=== PATIENT | male | born 1980 | race Caucasian/White ===

== ENCOUNTER 2017-07-04 10:49 | Emergency (ER) | payer SELFPAY ==
[2017-07-04] MEDS ORDERED: Morphine 10 MG/ML VIAL ONE (11:28)
[2017-07-04 11:49] LABS: Bilirubin Negative (Negative); Blood, Urine Negative (Negative); Clarity CLEAR (Clear); Glucose, Urine (Dipstick) Negative (Negative); Leukocyte Negative (Negative); Nitrite Negative (Negative); Protein, Urine (Dipstick) Negative (Neg-Trace); Specific Gravity, Urine 1.018 (1.002-1.036)
--- NOTE | 2017-07-04 12:22 | ULT ---
BILATERAL TESTICULAR/SCROTAL ULTRASOUND: History: Bilateral testicular pain. Technique: Multiplanar grayscale and color doppler images were obtained in a testicular/scrotal ultra sound. Spectral analysis of the doppler waveforms were performed. FINDINGS: Testicles were normal in echogenicity without focal lesion and demonstrate normal symmetric internal flow. No hydrocele is seen. The epididymi are symmetric in appearance without focal abnormality and d emonstrate symmetric internal flow. IMPRESSION: Unremarkable testicular/scrotal ultrasound. POS: [facility]
[2017-07-04 12:55] LABS: #Eosinphils 0.2 thou/uL (0.0-0.7); #Lymphocytes 1.1 thou/uL (1.20-3.40); #Monocytes 0.8 thou/uL (0.11-0.59); #Neutrophils 7.3 thou/uL (1.40-6.50); %Basophils 0.4 % (0.0-1.0); %Eosinophils 2.3 % (0.0-10.0); %Lymphocytes 11.4 % (21.0-51.0); %Neutrophils 77.9 % (42.0-75.0); Hemoglobin 15.2 g/dL (14.0-18.0); Mean Corpuscular Hemoglobin 30.9 pg (27.0-31.0); Mean Corpuscular Volume 93.5 fl (80.0-94.0); Mean Platelet Volume 7.9 fL (7.4-10.4); Platelet Count 259 thou/uL (130-400); RBC Distribution Width 12.5 % (11.5-14.5); Red Blood Cell (RBC) Count 4.92 mill/uL (4.70-6.10); White Blood Cell (WBC) Count 9.4 thou/uL (4.8-10.8)
[2017-07-04 13:17] LABS: ALT (SGPT) 13 U/L (8-55); AST (SGOT) 19 U/L (5-34); Albumin 4.2 g/dL (3.5-5.0); Alkaline Phosphatase 69 U/L (40-150); Anion Gap 12 mmol/L (10-20); BUN (Urea Nitrogen) 8 mg/dL (8.9-20.6); Bilirubin, Total 0.3 mg/dL (0.2-1.2); CRP (Inflammatory) 0.71 mg/dL (= or < 0.5); Calc. Creatinine Clearance 0 mL/min (70-130); Calcium 9.5 mg/dL (7.8-10.44); Carbon Dioxide 24 mmol/L (22-29); Chloride 106 mmol/L (98-107); Estimated GFR-MDRD 84; Globulin 3.1 g/dL (2.4-3.5); Glucose 89 mg/dL (70-105); Protein, Total 7.3 g/dL (6.0-8.3); Sodium 138 mmol/L (136-145)
--- NOTE | 2017-07-04 13:18 | CT ---
CT OF THE ABDOMEN AND PELVIS WITH CONTRAST: COMPARISON: None. HISTORY: Right testicular pain and swelling that began yesterday. TECHNIQUE: Multiple contiguous axial images were obtained in a CT of the abdomen and pelvis with contrast. Jhonny nal reformats were performed. FINDINGS: There is a subcentimeter hypodensity in the right lobe of the liver which is too small to characteriz e but likely represents a cyst. The gallbladder, kidneys, adrenal glands, spleen, and pancreas are u nremarkable. No free air, free fluid, or stranding changes are seen in the abdomen or pelvis. The large and small bowel are unremarkable. The appendix is not definite seen. Both testicles show no obvious abnormality. There is no scrotal wall thickening. No air is seen in the perioneal region. The visualized inferior thorax and osseous structures are unremarkable. IMPRESSION: 1. No evidence of acute intraabdominal/pelvic abnormality. 2. No significant scrotal abnormality. POS: [facility]
[2017-07-04] MEDS ORDERED: Azithromycin 250 MG TAB ONE (13:31)
[2017-07-04] MEDS ORDERED: HYDROcodone/Acetaminophen 5/325 mg Tablet ONE (13:45)
[2017-07-04] MEDS ORDERED: cefTRIAXone\\ROCEPHIN 250 MG VIAL ONE (13:55)
[2017-07-04] MEDS ORDERED: ISOVUE-370 76%-LOCM 1 ML ONE (15:51)
[2017-07-06 00:57] LABS: Chlamydia by PCR Not Detected (NotDetected); GC by PCR Not Detected (NotDetected)
== END 2017-07-04 14:24 | disposition home or self-care (01) ==
LOC: EDBD 10:49 → ERS 10:49
DX: N50.811 Right testicular pain (principal)
CPT/HCPCS: 36415; 74177; 76870; 80053; 81003; 83605; 85025; 85652; 86140; 87491; 87591; 93976; 96372; 96374; J0696; J2270

== ENCOUNTER 2021-01-30 03:27 | Emergency (ER) | payer OTHER ==
[2021-01-30] MEDS ORDERED: Ondansetron PF 4 MG/2 ML Vial ONE (03:46)
[2021-01-30] MEDS ORDERED: Pantoprazole 40 MG VIAL ONE (03:46)
[2021-01-30] MEDS ORDERED: Famotidine/PF 20 mg/2ml Vial ONE (03:51)
[2021-01-30 04:15] LABS: #Basophils 0.1 thou/uL (0.0-0.2); #Lymphocytes 1.1 thou/uL (1.20-3.40); #Monocytes 0.8 thou/uL (0.11-0.59); #Neutrophils 16.4 thou/uL (1.40-6.50); %Basophils 0.3 % (0.0-1.0); %Eosinophils 0.1 % (0.0-10.0); %Lymphocytes 5.9 % (21.0-51.0); %Monocytes 4.3 % (0.0-10.0); %Neutrophils 89.3 % (42.0-75.0); Hemoglobin 15.8 g/dL (14.0-18.0); Mean Corpuscular HGB CONC 33.4 g/dL (32.0-36.0); Mean Corpuscular Hemoglobin 30.3 pg (27.0-31.0); Mean Corpuscular Volume 90.8 fL (78.0-98.0); Mean Platelet Volume 7.7 fL (7.4-10.4); Platelet Count 299 thou/uL (130-400); RBC Distribution Width 11.5 % (11.5-14.5); Red Blood Cell (RBC) Count 5.23 mill/uL (4.70-6.10); White Blood Cell (WBC) Count 18.3 thou/uL (4.8-10.8)
[2021-01-30 04:35] LABS: ALT (SGPT) 19 U/L (8-55); AST (SGOT) 18 U/L (5-34); Albumin 4.7 g/dL (3.5-5.0); Alkaline Phosphatase 87 U/L (40-110); Anion Gap 17 mmol/L (10-20); BUN (Urea Nitrogen) 11 mg/dL (8.9-20.6); Bilirubin, Total 0.6 mg/dL (0.2-1.2); Calc. Creatinine Clearance 0 mL/min (70-130); Calcium 10.2 mg/dL (7.8-10.44); Carbon Dioxide 24 mmol/L (22-29); Chloride 102 mmol/L (98-107); Globulin 3.5 g/dL (2.4-3.5); Glucose 127 mg/dL (70-105); Lipase 85 U/L (8-78); Potassium 3.5 mmol/L (3.5-5.1); Protein, Total 8.2 g/dL (6.0-8.3); Sodium 139 mmol/L (136-145)
[2021-01-30] MEDS ORDERED: Mag-Al 1200 mg/1200 mg/30 ML UDCUP ONE (05:16)
== END 2021-01-30 07:06 | disposition home or self-care (01) ==
LOC: ERS 03:27
DX: K29.20 Alcoholic gastritis without bleeding (principal)
CPT/HCPCS: 36415; 76705; 80053; 83690; 85025; 96374; 96375; C9113; J2405; S0028